=== PATIENT | male | born 1955 | race Caucasian/White ===

== ENCOUNTER 2016-08-05 12:27 | Day surgery (SDC) | payer OTHER, MEDICAID ==
[2016-08-05] MEDS ORDERED: NALOXONE HCL 0.4 MG/ML INJ ONE (12:53)
[2016-08-05] MEDS ORDERED: FLUMAZENIL 0.5 MG/5 ML MDV IVP ONE (12:53)
[2016-08-05] MEDS ORDERED: fentaNYL 100 MCG/2 ML INJ ONE (12:54)
[2016-08-05] MEDS ORDERED: MIDAZOLAM 2 MG/2 ML VIAL ONE (12:54)
[2016-08-05 13:44] LABS: HEMATOCRIT 43.6 % (40.0-51.0)
[2016-08-05 13:56] LABS: INR 0.97 (0.83-1.16); PROTIME(PATIENT) 12.8 SEC (12.0-15.0)
[2016-08-05 13:57] LABS: APTT 26.9 SEC (23.0-38.0)
[2016-08-05 14:00] LABS: CREATININE 0.7 mg/dL (0.7-1.3); GLOMERULAR FILTRATION RATE > 60
[2016-08-05] MEDS ORDERED: NS 1,000 ML IV SCH (14:15)
[2016-08-05] MEDS ORDERED: IOPAMIDOL (ISOVUE-300) 100 ML BTL IV ONE (15:25)
== END 2016-08-05 19:30 | disposition home or self-care (01) ==
LOC: FIMAGING 12:27
PROVIDERS: ATTEND Neurological Surgery
DX: I67.1 Cerebral aneurysm, nonruptured (principal); I69.820 Aphasia following other cerebrovascular disease; I69.851 Hemiplegia and hemiparesis following other cerebrovascular disease affecting right dominant side; G35 Multiple sclerosis; I10 Essential (primary) hypertension
CPT/HCPCS: 36223; 36224; 36226; 36227; 99152; C1769; J1644; J2250; J2310; J3010; Q9967

== ENCOUNTER 2016-08-13 12:07 | Inpatient (IN) | payer OTHER, MEDICAID ==
[2016-08-13] MEDS ORDERED: NS 1,000 ML IV SCH (13:00)
[2016-08-13] MEDS ORDERED: ALTEPLASE 2 MG VIAL IVP PRN ×2 (13:02→13:11)
[2016-08-13] MEDS ORDERED: MIDAZOLAM 2 MG/2 ML VIAL ONE (13:40)
[2016-08-13] MEDS ORDERED: PROPOFOL 200 MG/20 ML VIAL ONE (14:53)
[2016-08-13] MEDS ORDERED: fentaNYL 250 MCG/5 ML INJ ONE (14:53)
[2016-08-13] MEDS ORDERED: LIDOCAINE 2% 5 ML SDV ONE (14:54)
[2016-08-13] MEDS ORDERED: ONDANSETRON 4 MG/2 ML VIAL ONE (14:54)
[2016-08-13] MEDS ORDERED: ROCURONIUM 50 MG/5 ML VIAL ONE ×2 (14:54→16:47)
[2016-08-13] MEDS ORDERED: DEXAMETHASONE 4 MG/ML VIAL ONE ×2 (14:54)
[2016-08-13] MEDS ORDERED: epHEDrine SULFATE 10 MG/ML SYR ONE (15:16)
[2016-08-13] MEDS ORDERED: HEPARIN 10,000 UNIT/10 ML MDV ONE ×2 (15:48→16:17)
[2016-08-13] MEDS ORDERED: IOPAMIDOL (ISOVUE-300) 100 ML BTL IV ONE (16:17)
[2016-08-13] MEDS ORDERED: PHENYLEPHRINE HCL 100 MCG/ML SYR ONE (16:26)
[2016-08-13] MEDS ORDERED: LABETALOL HCL 5 MG/ML 20 ML MDV IVP PRN (17:22)
[2016-08-13] MEDS ORDERED: fentaNYL 100 MCG/2 ML INJ IVP PRN (17:22)
[2016-08-13] MEDS ORDERED: ONDANSETRON 4 MG/2 ML VIAL IVP PRN (17:22)
[2016-08-13] MEDS ORDERED: NALOXONE HCL 0.4 MG/ML INJ IVP PRN (17:22)
[2016-08-13] MEDS ORDERED: SUGAMMADEX SODIUM 200 MG/2 ML VIAL IVP ONE (18:19)
[2016-08-13] MEDS ORDERED: BISACODYL 10 MG SUPP PR PRN (18:39)
[2016-08-13] MEDS ORDERED: LACTULOSE 20 GM/30 ML UDCUP PO PRN (18:39)
[2016-08-13] MEDS ORDERED: POLYETHYLENE GLYCOL 3350 17 GM PKT PO PRN (18:39)
[2016-08-13] MEDS ORDERED: HYDROCODONE/APAP 10/325 TAB PO PRN (18:39)
[2016-08-13] MEDS ORDERED: MAGNESIUM HYDROXIDE 30 ML UDCUP PO PRN (18:39)
--- NOTE | 2016-08-13 18:39 | POSTOPPROG ---
Post Op Note Date of Operation: 08/13/16 Surgeon: Jason Jauregui Trimmer Hand: none Anesthesia: GET(General Endotracheal) Pre-op Diagnosis: left transverse sinus dAVF Post-op Diagnosis: same Indication: dAVF Procedure: subtotal huy embolization of left transverse sinus dAVF Findings: see dictation Inf/Abcess present in the surg proc area at time of surgery?: No EBL: Minimal Complications: none Specimen(s): none
[2016-08-13] MEDS ORDERED: NS W/ 20 KCl/L 1,000 ML IV SCH (18:45)
[2016-08-13] MEDS: SENNOSIDES/DOCUSATE SODIUM TAB PO SCH (22:18)
[2016-08-13] MEDS: niCARdipine/NACL 200 ML IV PRN (22:18)
[2016-08-14] MEDS: niCARdipine/NACL 200 ML IV PRN (05:48)
[2016-08-14 07:31] VITALS: TEMP 98.1
--- NOTE | 2016-08-14 07:41 | NEUSURGPN ---
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 Jauregui, patient will follow up for angio after discharge. -Please notify NS with any change in neuro/motor exam Subjective: Denies any headache, nausea, dizziness Objective: NAD A&Ox3 MAEx4, 5/5 in LUE and LLE. RLE 5-/5 except DF/EHL 2/5. Groin soft, flat. Ecchymosis laterally DP/PT pulse 2+ bilaterally - Physician Discussed Patient with Dr.: Jauregui Neurosurgery Physical Exam - Vitals, I&O, Labs I and O 08/13/16 08/14/16 08/15/16 05:59 05:59 05:59 Intake Total 1800 Output Total 1300 Balance 500 Weight 76 kg Intake: Oral (ml) 600 IV Infused (ml) 1200 NS W/ 20 KCl/L 1,000 ml @ 1000 100 mls/hr IV CONT ERWIN Rx#:[id number] niCARdipine/NACL 200 ml @ 200 Titrate IV PRN PRN Rx#: [id number] Output: Urine (ml) 1300 Catheter 1300 Vital Signs Temp Pulse Resp BP Pulse Ox 36.7 C 83 16 126/72 H 100 08/14/16 07:21 08/14/16 07:21 08/14/16 07:21 08/14/16 07:21 08/14/16 07:21 ICD10 Worksheet Patient Problems: Problems Problem Status Onset Multiple sclerosis Active
[2016-08-14] MEDS: SENNOSIDES/DOCUSATE SODIUM TAB PO SCH (08:57)
[2016-08-14] MEDS ORDERED: ENOXAPARIN 40 MG/0.4 ML SYR SC SCH (09:00)
[2016-08-14 10:44] VITALS: RESP 20
[2016-08-14 10:45] VITALS: BP 119/86; PULSE 82; O2SAT 96
== END 2016-08-14 10:46 | disposition home or self-care (01) | DRG 27 ==
LOC: FIMAGING 12:07 → OBSVTOIN 17:34 → F2N 17:34
PROVIDERS: ADMIT Neurological Surgery; ATTEND Neurological Surgery
PROC: 03L Upper Arteries, Occlusion (ICD-10-PCS; principal; 2016-08-13)
DX: I67.1 Cerebral aneurysm, nonruptured (principal); G35 Multiple sclerosis; G40.909 Epilepsy, unspecified, not intractable, without status epilepticus
CPT/HCPCS: C1769; C1887; C1893; C1894; J1100; J1644; J1650; J2250; J2370; J2405; J2704; J3010; Q9967

== ENCOUNTER 2016-08-28 11:32 | Inpatient (IN) | payer OTHER, MEDICAID ==
[2016-08-28] MEDS ORDERED: NS 1,000 ML IV SCH (12:15)
[2016-08-28 12:30] LABS: % IMMATURE GRANULYOCYTES 0.5 % (0.0-1.1); ABSOLUTE IMMATURE GRANULOCYTES 0.03 10^3/uL (0.00-0.10); ADD DIFF? NO; ADD MORPH? NO; ADD SCAN? NO; ATYPICAL LYMPHOCYTE FLAG 0 (0-99); FRAGMENT RBC FLAG 0 (0-99); HEMATOCRIT 39.8 % (40.0-51.0); HEMOGLOBIN 13.1 g/dL (13.7-17.5); LEFT SHIFT FLG 0 (0-99); LIPEMIA HEMOLYSIS FLAG 80 (0-99); MEAN CELL HEMOGLOBIN 30.6 pg (27.9-34.1); MEAN CELL HEMOGLOBIN CONCENTR. 32.9 g/dL (32.4-36.7); MEAN PLATELET VOLUME 8.8 fL (8.7-11.7); PLATELET CLUMPS FLAG 0 (0-99); PLATELET COUNT 278 10^3/uL (150-400); RED BLOOD CELL COUNT 4.28 10^6/uL (4.40-6.38); RED CELL DISTRIBUTION WIDTH 12.8 % (11.5-15.2)
[2016-08-28 12:43] LABS: INR 0.96 (0.83-1.16); PROTIME(PATIENT) 12.7 SEC (12.0-15.0)
[2016-08-28 12:44] LABS: APTT 23.4 SEC (23.0-38.0)
[2016-08-28 12:54] LABS: ALANINE AMINOTRANSFERASE 25 IU/L (21-72); ALBUMIN 4.1 g/dL (3.5-5.0); ALKALINE PHOSPHATASE 93 IU/L (38-126); ANION GAP 10 mEq/L (8-16); ASPARTATE AMINOTRANSFERASE 23 IU/L (17-59); BILIRUBIN,TOTAL 0.6 mg/dL (0.1-1.4); CALCIUM 9.1 mg/dL (8.5-10.4); CARBON DIOXIDE 24 mEq/l (22-31); CHLORIDE 100 mEq/L (97-110); CREATININE 0.8 mg/dL (0.7-1.3); GLOMERULAR FILTRATION RATE > 60; GLUCOSE 84 mg/dL (70-100); POTASSIUM 4.3 mEq/L (3.5-5.2); SODIUM 134 mEq/L (134-144); TOTAL PROTEIN 7.4 g/dL (6.3-8.2)
[2016-08-28] MEDS ORDERED: fentaNYL 100 MCG/2 ML INJ ONE (13:01)
[2016-08-28] MEDS ORDERED: PROPOFOL/EMULSION 500 MG/50 ML BOTTLE IV ONE (13:01)
[2016-08-28] MEDS ORDERED: PHENYLEPHRINE HCL 100 MCG/ML SYR ONE (13:03)
[2016-08-28] MEDS ORDERED: ROCURONIUM 50 MG/5 ML VIAL ONE ×2 (13:03→14:28)
[2016-08-28] MEDS ORDERED: epHEDrine SULFATE 10 MG/ML SYR ONE (13:03)
[2016-08-28] MEDS ORDERED: LIDOCAINE 2% 5 ML SDV ONE ×2 (13:03→15:07)
[2016-08-28] MEDS ORDERED: MIDAZOLAM 2 MG/2 ML VIAL ONE (13:06)
[2016-08-28] MEDS ORDERED: VASOPRESSIN 20 UNIT/ML VIAL ONE (14:28)
[2016-08-28] MEDS ORDERED: HEPARIN 10,000 UNIT/10 ML MDV ONE ×2 (14:33→16:58)
[2016-08-28] MEDS ORDERED: ALBUMIN 5% 250 ML BOTTLE IV ONE (14:37)
[2016-08-28] MEDS ORDERED: PROPOFOL 200 MG/20 ML VIAL ONE (15:36)
[2016-08-28] MEDS ORDERED: NALOXONE HCL 0.4 MG/ML INJ IVP PRN (16:44)
[2016-08-28] MEDS ORDERED: SUGAMMADEX SODIUM 200 MG/2 ML VIAL IVP ONE (16:55)
[2016-08-28] MEDS ORDERED: IOPAMIDOL (ISOVUE-300) 100 ML BTL IV ONE (16:57)
[2016-08-28] MEDS ORDERED: OXYCODONE/APAP 5/325 TAB PO PRN (18:01)
[2016-08-28] MEDS ORDERED: ONDANSETRON 4 MG/2 ML VIAL IVP PRN (18:01)
[2016-08-28] MEDS ORDERED: LACTULOSE 20 GM/30 ML UDCUP PO PRN (18:15)
[2016-08-28] MEDS ORDERED: BISACODYL 10 MG SUPP PR PRN (18:15)
[2016-08-28] MEDS ORDERED: MAGNESIUM HYDROXIDE 30 ML UDCUP PO PRN (18:15)
[2016-08-28] MEDS ORDERED: POLYETHYLENE GLYCOL 3350 17 GM PKT PO PRN (18:15)
[2016-08-28] MEDS ORDERED: niCARdipine/NACL 200 ML IV SCH (18:30)
[2016-08-28] MEDS ORDERED: carBAMazepine 200 MG TAB PO SCH (21:00)
[2016-08-28] MEDS ORDERED: DIAZEPAM 5 MG TAB PO SCH (21:00)
[2016-08-28] MEDS ORDERED: BACLOFEN 20 MG TAB PO SCH (21:00)
[2016-08-28] MEDS: SENNOSIDES/DOCUSATE SODIUM TAB PO SCH (21:26)
[2016-08-28 23:25] VITALS: TEMP 98.2
[2016-08-29 06:04] VITALS: BP 134/80; PULSE 75; RESP 12; O2SAT 96
--- NOTE | 2016-08-29 07:47 | NEUSURGPN ---
Assessment/Plan: 61y/o male s/p cerberal angiogram and embolization. -advance diet as tolerated -Optimize pain management -Activity as tolerated - Dispo planning -Discussed with Dr. Jauregui Subjective: Mild dizziness at baseline. Denies any headache, vomiting, groin pain Objective: NAD CN II-XII grossly intact. EOMI. MAEx4, RLE 2/5(at baseline per pt) LLE 5-/ 5. Groin soft, no edema. DP/PT/Femoral 2+ bilaterally. Catheter Insertion Date: 08/28/16 - Physician Discussed Patient with : Shania Neurosurgery Physical Exam - Vitals, I&O, Labs I and O 08/28/16 08/29/16 08/30/16 05:59 05:59 05:59 Intake Total 1007 Output Total 2275 Balance -1268 Weight 72.57 kg Intake: Oral (ml) 100 IV Infused (ml) 907 Ns 1,000 ml @ 100 mls/hr 741 IV CONT ERWIN Rx#: [id number] niCARdipine/NACL 200 ml @ 166 Titrate IV CONT ERWIN Rx#: [id number] Output: Urine (ml) 2275 Catheter 2275 Other: Bladder Scan Volume (ml) Catheter 400 Vital Signs Temp Pulse Resp BP Pulse Ox 36.8 C 75 12 134/80 H 96 08/28/16 19:00 08/29/16 06:00 08/29/16 06:00 08/29/16 06:00 08/29/16 06:00 Laboratory Results 08/28/16 12:09 08/28/16 12:09 ICD10 Worksheet Patient Problems: Problems Problem Status Onset Multiple sclerosis Active
[2016-08-29] MEDS ORDERED: ASPIRIN 81 MG CHEWABLE TAB PO SCH (09:00)
[2016-08-29] MEDS ORDERED: LOSARTAN POTASSIUM 50 MG TAB PO SCH (09:00)
[2016-08-29] MEDS: SENNOSIDES/DOCUSATE SODIUM TAB PO SCH (09:34)
[2016-09-02] MEDS ORDERED: INTERFERON BETA 30 MCG IM SCH (09:00)
== END 2016-08-29 10:30 | disposition home or self-care (01) | DRG 271 ==
LOC: FIMAGING 11:32 → F2N 17:19
PROVIDERS: ADMIT Neurological Surgery; ATTEND Neurological Surgery
DX: I77.0 Arteriovenous fistula, acquired (principal); G81.91 Hemiplegia, unspecified affecting right dominant side; R47.01 Aphasia; G35 Multiple sclerosis; F01.50 Vascular dementia, unspecified severity, without behavioral disturbance, psychotic disturbance, mood disturbance, and anxiety
CPT/HCPCS: C1769; C1887; C1892; J1644; J2250; J2370; J2704; J3010; P9041; Q9967

== ENCOUNTER 2016-12-18 11:11 | Inpatient (IN) | payer OTHER, MEDICAID ==
[2016-12-18] MEDS ORDERED: IOPAMIDOL (ISOVUE-300) 100 ML BTL ONE ×2 (12:19→15:35)
[2016-12-18] MEDS ORDERED: NALOXONE HCL 0.4 MG/ML INJ IVP PRN (12:46)
[2016-12-18] MEDS ORDERED: fentaNYL 100 MCG/2 ML INJ IVP PRN ×2 (12:46)
[2016-12-18] MEDS ORDERED: ONDANSETRON 4 MG/2 ML VIAL IVP PRN ×2 (12:46→16:55)
--- NOTE | 2016-12-18 12:49 | PDANEPAE ---
ANE History of Present Illness Cerebral Embolization ANE Past Medical History - Cardiovascular History Hx Hypertension: Yes Hx Arrhythmias: No Hx Chest Pain: No Hx Coronary Artery / Peripheral Vascular Disease: No Hx CHF / Valvular Disease: No Hx Palpitations: No - Pulmonary History Hx COPD: No Hx Asthma/Reactive Airway Disease: No Hx Recent Upper Respiratory Infection: Yes Hx Oxygen in Use at Home: No Hx Sleep Apnea: No Pulmonary History Comment: May-upper respiratory infection - Neurologic History Hx Cerebrovascular Accident: No Hx Seizures: Yes Hx Dementia: No Neurologic History Comment: -"He has never had a stroke. Well, he had some clotting in his brain and stroke like symptoms but I don't know if it was a stroke."-as per patient's brotherHira. - Grand mal seizure apprx 14 years ago - Endocrine History Hx Diabetes: No - Renal History Hx Renal Disorders: No - Liver History Hx Hepatic Disorders: No - Neurological & Psychiatric Hx Hx Neurological and Psychiatric Disorders: Yes Neurological / Psychiatric History Comment: Multiple sclerosis - Cancer History Hx Cancer: Yes Cancer History Comment: Skin cancer-"removed several years ago" as per brotherHira - Congenital Disorder History Hx Congenital Disorders: No - GI History Hx Gastrointestinal Disorders: No - Chronic Pain History Chronic Pain: Yes (neck and back of head and back) - Surgical History Prior Surgeries: prostate surgery. hernia surgery ANE Review of Systems Review of systems is: negative - Exercise capacity METS (RN): 2 METS ANE Patient History - Allergies Allergies/Adverse Reactions: bee venom Allergy (Intermediate, Uncoded 12/10/16 16:26) MELON Allergy (Intermediate, Uncoded 12/10/16 16:26) Rash - Home Medications Home Medications: Acetaminophen [Tylenol 325mg (*)] 325 - 650 mg PO Q4 PRN 07/27/15 [Last Taken Unknown] Aspirin [Aspirin 81mg (*)] 81 mg PO DAILY 07/27/15 [Last Taken 07/27/15] Baclofen [Baclofen 20 mg (*)] 20 - 40 mg PO HS 07/27/15 [Last Taken 07/26/15] Fluticasone Nasal [Flonase Nasal Diboll] 1 sprays EACHNARE BID PRN 07/27/15 [ Last Taken Unknown] Interferon Beta-1A [Avonex] 30 mcg IM TU@07/27/15 [Last Taken 08/12/16] Multivitamins W-Minerals [Thera M Plus Tablet (*)] 1 each PO DAILY 07/27/15 [ Last Taken 07/27/15] Polyethylene Glycol 3350 [Miralax 17 gm (*)] 17 gm PO DAILY PRN 07/27/15 [Last Taken Unknown] Sennosides/Docusate Sodium [Senokot-S] 1 tab PO BID PRN 07/27/15 [Last Taken Unknown] carBAMazepine [Tegretol] 200 - 400 mg PO HS 07/27/15 [Last Taken 07/27/15 09:00] guaiFENesin [Mucinex 600 MG (*)] 600 mg PO HS PRN 07/27/15 [Last Taken Unknown] tiZANidine HCL [Zanaflex] 4 - 8 mg PO HS 07/27/15 [Last Taken 07/26/15] Diazepam 1 - 2 tab PO HS 08/13/16 [Last Taken Unknown] Losartan Potassium 100 mg PO DAILY 08/13/16 [Last Taken 08/13/16] SOLU-MEDROL 12/10/16 [Last Taken Unknown] - Smoking Hx Smoking Status: Former smoker - Family Anes Hx Family Hx Anesthesia Complications: None ANE Labs/Vital Signs - Vital Signs Height: 180.34 cm Weight: 72.575 kg ANE Physical Exam - Airway Neck exam: FROM Mallampati Score: Class 2 Mouth exam: normal dental/mouth exam - Pulmonary Pulmonary: clear to auscultation - Cardiovascular Cardiovascular: regular rate and rhythym - ASA Status ASA Status: II ANE Anesthesia Plan Anesthesia Plan: general endotracheal anesthesia
[2016-12-18] MEDS ORDERED: PROPOFOL 200 MG/20 ML VIAL ONE (13:12)
[2016-12-18] MEDS ORDERED: ROCURONIUM 50 MG/5 ML VIAL ONE ×2 (13:14→15:38)
[2016-12-18] MEDS ORDERED: fentaNYL 100 MCG/2 ML INJ ONE (13:14)
[2016-12-18] MEDS ORDERED: LIDOCAINE 2% JELLY 20 ML (UROJECT) ONE (13:33)
[2016-12-18] MEDS ORDERED: VASOPRESSIN 20 UNIT/ML VIAL ONE (14:03)
[2016-12-18] MEDS ORDERED: epHEDrine SULFATE 10 MG/ML SYR ONE (14:03)
[2016-12-18] MEDS ORDERED: SUGAMMADEX SODIUM 200 MG/2 ML VIAL IVP ONE (16:21)
[2016-12-18] MEDS ORDERED: OXYCODONE/APAP 5/325 TAB PO PRN (16:55)
--- NOTE | 2016-12-18 16:59 | POSTOPPROG ---
Post Op Note Date of Operation: 12/18/16 Surgeon: Jason Jauregui Neon Sign Worker: none Anesthesiologist: manohar Anesthesia: GET(General Endotracheal) Pre-op Diagnosis: dAVF Post-op Diagnosis: dAVF Indication: [place] 3 dAVF Procedure: cerebral aniography, transvenous embolization of dAVF Findings: successful dAVF embolization Inf/Abcess present in the surg proc area at time of surgery?: No EBL: Minimal Total fluids administered: per anesthesia record Complications: none Specimen(s): none
[2016-12-18] MEDS ORDERED: NS 1,000 ML IV SCH (17:00)
[2016-12-18] MEDS ORDERED: SENNOSIDES/DOCUSATE SODIUM TAB PO PRN (22:07)
[2016-12-18] MEDS ORDERED: FLUTICASONE NASAL 120 SPRAYS/16 GM MDI EACHNARE PRN (22:07)
[2016-12-18] MEDS ORDERED: ACETAMINOPHEN 325 MG TAB PO PRN (22:07)
[2016-12-18] MEDS ORDERED: CHOLESTYRAMINE PO PRN (22:07)
[2016-12-18] MEDS ORDERED: POLYETHYLENE GLYCOL 3350 17 GM PKT PO PRN (22:07)
[2016-12-18] MEDS ORDERED: ASPARTAME PO PRN (22:07)
[2016-12-18] MEDS ORDERED: guaiFENesin 600 MG TAB.ER PO PRN (22:07)
[2016-12-19] MEDS ORDERED: SODIUM CL NASAL 45 ML BTL EACHNARE PRN (01:29)
[2016-12-19 04:26] VITALS: TEMP 98.4
[2016-12-19 06:09] VITALS: BP 150/97; PULSE 92; RESP 9; O2SAT 90
[2016-12-19] MEDS ORDERED: BACLOFEN 20 MG TAB PO SCH (09:00)
[2016-12-19] MEDS ORDERED: LOSARTAN POTASSIUM 50 MG TAB PO SCH (09:00)
[2016-12-19] MEDS ORDERED: carBAMazepine 200 MG TAB PO SCH (09:00)
--- NOTE | 2016-12-19 09:50 | NEUSURGPN ---
Assessment/Plan: A/P 61 y/o male s/p cerebral aniography, transvenous embolization of dAVF on 02/24 -Optimize pain management -Mobilize as tolerated -Okay to take down groin dressing on Thursday and shower -Post op head CT okay -Discussed with Dr. Jauregui -Dispo planning Subjective: Denies any new pain or weakness. Objective: NAD A&Ox3 MAEx4 RUE and RLE 3/5 throughout. LUE and LLE /. Groin soft supple, no ecchymosis Catheter Insertion Date: 12/18/16 - Physician Discussed Patient with : Shania Neurosurgery Physical Exam - Vitals, I&O, Labs I and O 12/18/16 12/19/16 12/20/16 05:59 05:59 05:59 Intake Total 1800 Output Total 2700 Balance -900 Weight 72.5 kg Intake: Oral (ml) 200 IV Intake (ml) 1600 Output: Urine (ml) 2700 Catheter 2700 Vital Signs Temp Pulse Resp BP Pulse Ox 36.9 C 92 9 L 150/97 H 90 L 12/19/16 04:00 12/19/16 06:00 12/19/16 06:00 12/19/16 06:00 12/19/16 06:00 ICD10 Worksheet Patient Problems: Problems Problem Status Onset Multiple sclerosis Active
[2016-12-19] MEDS ORDERED: DIAZEPAM 5 MG TAB PO SCH (21:00)
== END 2016-12-19 09:30 | disposition home or self-care (01) | DRG 26 ==
LOC: FIMAGING 11:11 → F2N 16:45
PROVIDERS: ADMIT Neurological Surgery; ATTEND Neurological Surgery
PROC: 05L Upper Veins, Occlusion (ICD-10-PCS; principal; 2016-12-18)
DX: I67.1 Cerebral aneurysm, nonruptured (principal); G81.91 Hemiplegia, unspecified affecting right dominant side; G35 Multiple sclerosis
CPT/HCPCS: C1760; C1769; C1887; C1892; C1893; J1644; J2704; J3010; Q9967